=== PATIENT | male | born 1995 | race Caucasian/White ===

== ENCOUNTER 2018-02-27 19:37 | Emergency (ER) | payer BC, OTHER ==
[~2018-02-27 19:37] MED LIST: FEXO-67 PO; OXYC-865 PO
[2018-02-27] MEDS ORDERED: ACETAMINOPHEN 500 MG TAB PO ONE (19:55)
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
[2018-02-27 20:30] VITALS: BP 116/77
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
== END 2018-02-27 21:04 | disposition home or self-care (01) ==
LOC: ER 19:43
DX: S40.011A Contusion of right shoulder, initial encounter (principal); V19.88XA Pedal cyclist (driver) (passenger) injured in other specified transport accidents, initial encounter; Y93.55 Activity, bike riding
CPT/HCPCS: 71046; 73010; 73030; 99284; A4565